=== PATIENT | female | born 1950 | race African-American/Black ===

== ENCOUNTER 2018-10-26 12:19 | Inpatient (IN) | payer MEDICARE, MEDICAID ==
[~2018-10-26] VITALS: Ht 160 cm; Wt 64.4 kg
[~2018-10-26 12:19] MED LIST: MIDODRINE HCL 5MG TABLET PO SCH
[2018-10-26] MEDS ORDERED: SODIUM CHLORIDE 0.9% 1,000 ML IV ONE (12:31)
[2018-10-26] MEDS ORDERED: NOREPINEPHRINE 4 MG in DEXT 5% WATER 250 ML IV STA ×3 (14:13→14:47)
[2018-10-26 14:42] LABS: BASOPHILS % 0.5 % (0.0-2.0); EOSINOPHILS % 0.4 % (0.0-5.0); HEMATOCRIT. 40.4 % (36.0-48.0); HEMOGLOBIN. 13.3 g/dL (12.0-16.0); MEAN CORPUSCULAR HEMOGLOBIN 31.4 pg (28.0-32.0); MEAN CORPUSCULAR VOLUME 95.2 fL (81.0-99.0); MEAN PLATELET VOLUME 8.7 fl (7.4-10.4); MONOCYTES % 6.2 % (2.0-8.0); NEUTROPHILS % 65.9 % (40.0-76.0); PLATELET 133 x1000/uL (130-400); RED BLOOD CELL COUNT 4.24 mill/uL (4.2-5.4); RED CELL DISTRIBUTION WIDTH 17.5 % (11.6-14.6)
[2018-10-26 14:47] LABS: CHLORIDE 112 mEq/L (98-107)
[2018-10-26 14:48] LABS: INR 1.3; PROTHROMBIN TIME 13.4 sec (9.6-11.0)
[2018-10-26] MEDS ORDERED: NOREPINEPHRINE 4MG/250ML PMX 250 ML IV ONE (15:00)
[2018-10-26] MEDS ORDERED: VANCOMYCIN 1 G PREMIX 200 ML IV ONE (15:15)
[2018-10-26] MEDS ORDERED: DILTIAZEM HCL 5MG/ML 5ML VIAL IV ONE (15:15)
[2018-10-26] MEDS ORDERED: PIPERACILLIN/TAZ 3.375G PREMIX 50 ML IV ONE (15:15)
[2018-10-26] MEDS ORDERED: DILTIAZEM HCL 60MG TABLET PO ONE (15:45)
[2018-10-26 16:20] LABS: CLARITY URINE CLEAR (CLEAR); COLOR URINE YELLOW (YELLOW); KETONES URINE NEGATIVE (NEGATIVE); LEUKOCYTE ESTERASE URINE NEGATIVE (NEGATIVE); NITRITE URINE NEGATIVE (NEGATIVE); OCCULT BLOOD URINE 1+ (NEGATIVE); PROTEIN URINE 2+ (NEGATIVE); SPECIFIC GRAVITY URINE 1.009 (1.005-1.030); UROBILINOGEN URINE 0.2 E.U./dL (0.2-1.0)
[2018-10-26] MEDS ORDERED: ONDANSETRON HCL 4MG/2ML INJ IV PRN (16:45)
[2018-10-26] MEDS ORDERED: ACETAMINOPHEN 325MG TABLET PO PRN (16:45)
[2018-10-26] MEDS ORDERED: DILTIAZEM HCL 5MG/ML 5ML VIAL IV PRN (17:00)
[2018-10-26 17:56] LABS: *BARBITURATES SCREEN URINE NEGATIVE (NEGATIVE); *BENZODIAZEPINES SCREEN URINE NEGATIVE (NEGATIVE)
[2018-10-26 17:57] LABS: *AMPHETAMINES SCREEN URINE NEGATIVE (NEGATIVE); *COCAINE SCREEN URINE NEGATIVE (NEGATIVE); CANNABINOID URINE SCREEN NEGATIVE (NEGATIVE); METHADONE URINE SCREEN NEGATIVE (NEGATIVE); OPIATES URINE SCREEN NEGATIVE (NEGATIVE); PHENCYCLIDINE URINE SCREEN NEGATIVE (NEGATIVE)
[2018-10-26] MEDS: SODIUM CHLORIDE 0.9% 1,000 ML IV SCH (22:46)
[2018-10-26] MEDS ORDERED: NOREPINEPHRINE 4 MG in DEXT 5% WATER 246 ML IV ONE (23:15)
[2018-10-26] MEDS ORDERED: NOREPINEPHRINE 4MG/250ML PMX 250 ML IV NR (23:26)
[2018-10-27] VITALS (31 sets, daily range): BP systolic 90–141; BP diastolic 47–97
[2018-10-27] MEDS ORDERED: ENOXAPARIN 80MG/0.8ML SYR SUBCUT NR (04:45)
[2018-10-27] MEDS ORDERED: ENOXAPARIN 80MG/0.8ML SYR SUBCUT SCH (09:00)
[2018-10-27] MEDS: SODIUM CHLORIDE 0.9% 1,000 ML IV SCH (09:33)
[2018-10-27 13:01] LABS: BASOPHILS % 0.7 % (0.0-2.0); EOSINOPHILS % 1.4 % (0.0-5.0); HEMATOCRIT. 39.7 % (36.0-48.0); LYMPHOCYTES % 33.9 % (20.0-50.0); MEAN CORPUSCULAR HEMOGLOBIN 31.1 pg (28.0-32.0); MEAN CORPUSCULAR VOLUME 95.2 fL (81.0-99.0); MONOCYTES % 6.8 % (2.0-8.0); NEUTROPHILS % 57.2 % (40.0-76.0); PLATELET 124 x1000/uL (130-400); RED BLOOD CELL COUNT 4.18 mill/uL (4.2-5.4); RED CELL DISTRIBUTION WIDTH 17.5 % (11.6-14.6)
[2018-10-27 13:08] LABS: CHLORIDE 114 mEq/L (98-107)
[2018-10-27] MEDS ORDERED: POTASSIUM CHLORIDE 20MEQ TABLET SR PO NR (14:56)
[2018-10-28] VITALS (7 sets, daily range): BP systolic 113–145; BP diastolic 56–87
[2018-10-28] MEDS: BUDESONIDE 0.5MG/2ML NEB HHN SCH ×3 (01:01→07:30)
[2018-10-28] MEDS: IPRATROPIUM BROMIDE (0.02%) 0.5MG/2.5ML NEB HHN PRN ×2 (01:01→07:30)
[2018-10-28] MEDS ORDERED: REGADENOSON 0.4 MG/5 ML IV SCH (08:00)
[2018-10-28] MEDS ORDERED: ENOXAPARIN 80MG/0.8ML SYR SUBCUT SCH (09:00)
[2018-10-28 09:55] LABS: BASOPHILS % 0.2 % (0.0-2.0); EOSINOPHILS % 2.1 % (0.0-5.0); LYMPHOCYTES % 51.4 % (20.0-50.0); MEAN CORPUSCULAR HEMOGLOBIN 31.3 pg (28.0-32.0); MEAN PLATELET VOLUME 8.6 fl (7.4-10.4); MONOCYTES % 6.8 % (2.0-8.0); NEUTROPHILS % 39.5 % (40.0-76.0); PLATELET 147 x1000/uL (130-400); RED BLOOD CELL COUNT 4.48 mill/uL (4.2-5.4); RED CELL DISTRIBUTION WIDTH 17.7 % (11.6-14.6)
[2018-10-28] MEDS ORDERED: CARVEDILOL 3.125 MG TABLET PO SCH (11:30)
[2018-10-28] MEDS ORDERED: ENOXAPARIN 60MG/0.6ML SYR SUBCUT SCH (21:00)
== END 2018-10-28 13:00 | disposition home or self-care (01) | DRG 280 ==
LOC: ER 12:19 → CVICU 16:04 → EDBEDREQSVC 16:14 → EDBEDREQ 16:14 → CANRESERV 22:25 → ENRESERV 22:25 → 3WST 10-27 20:33
PROVIDERS: ADMIT Internal Medicine; ATTEND Internal Medicine
PROC: 06HY33Z Insertion of Infusion Device into Lower Vein, Percutaneous Approach (ICD-10-PCS; principal; 2018-10-26)
PROC: B54BZZA Ultrasonography of Right Lower Extremity Veins, Guidance (ICD-10-PCS; 2018-10-26)
DX: I21.4 Non-ST elevation (NSTEMI) myocardial infarction (principal); J96.00 Acute respiratory failure, unspecified whether with hypoxia or hypercapnia; N17.0 Acute kidney failure with tubular necrosis; E44.0 Moderate protein-calorie malnutrition; R57.9 Shock, unspecified; E87.2 Acidosis; I42.0 Dilated cardiomyopathy; I95.9 Hypotension, unspecified; I48.91 Unspecified atrial fibrillation; E11.9 Type 2 diabetes mellitus without complications; J44.9 Chronic obstructive pulmonary disease, unspecified; I50.9 Heart failure, unspecified; I11.0 Hypertensive heart disease with heart failure; I27.20 Pulmonary hypertension, unspecified; E87.8 Other disorders of electrolyte and fluid balance, not elsewhere classified; R00.0 Tachycardia, unspecified; Z82.49 Family history of ischemic heart disease and other diseases of the circulatory system; Z86.711 Personal history of pulmonary embolism; Z86.79 Personal history of other diseases of the circulatory system; Z95.810 Presence of automatic (implantable) cardiac defibrillator; Z90.49 Acquired absence of other specified parts of digestive tract; Z79.899 Other long term (current) drug therapy; Z68.25 Body mass index [BMI] 25.0-25.9, adult
CPT/HCPCS: 36415; 36556; 71045; 78452; 78582; 80048; 80061; 80305; 81003; 82962; 83036; 83605; 83735; 84145; 84443; 84484; 93005; 93017; 93306; 94640; 96365; 96366; 96368; 97162; 99291; A9500; A9558; J1650; J2543; J3370; J3490; J7030; J7060; J7626

== ENCOUNTER 2019-07-30 12:40 | Emergency (ER) | payer MEDICARE, MEDICAID | END 2019-07-30 13:18 | disposition left against medical advice (07) | LOC: ER 12:52 | DX: R68.89 Other general symptoms and signs (principal); Z53.21 Procedure and treatment not carried out due to patient leaving prior to being seen by health care provider ==

== ENCOUNTER 2019-08-20 18:03 | Emergency (ER) | payer MEDICARE, MEDICAID ==
[~2019-08-20] VITALS: Ht 162.6 cm; Wt 61.0 kg
[2019-08-20 19:34] LABS: BASOPHILS % 0.6 % (0.0-2.0); CLARITY URINE CLEAR (CLEAR); COLOR URINE YELLOW (YELLOW); EOSINOPHILS % 1.8 % (0.0-5.0); HEMATOCRIT. 32.6 % (36.0-48.0); KETONES URINE NEGATIVE (NEGATIVE); LEUKOCYTE ESTERASE URINE NEGATIVE (NEGATIVE); LYMPHOCYTES % 44.4 % (20.0-50.0); MEAN CORPUSCULAR HEMOGLOBIN 33.5 pg (28.0-32.0); MEAN CORPUSCULAR VOLUME 99.3 fL (81.0-99.0); MEAN PLATELET VOLUME 9.1 fl (7.4-10.4); MONOCYTES % 10.4 % (2.0-8.0); NEUTROPHILS % 42.8 % (40.0-76.0); NITRITE URINE NEGATIVE (NEGATIVE); OCCULT BLOOD URINE NEGATIVE (NEGATIVE); PLATELET 214 x1000/uL (130-400); PROTEIN URINE NEGATIVE (NEGATIVE); RED BLOOD CELL COUNT 3.29 mill/uL (4.2-5.4); RED CELL DISTRIBUTION WIDTH 16.9 % (11.6-14.6); SPECIFIC GRAVITY URINE 1.015 (1.005-1.030); UROBILINOGEN URINE 0.2 E.U./dL (0.2-1.0)
[2019-08-20 19:37] LABS: CHLORIDE 111 mEq/L (98-107)
[2019-08-20 20:19] LABS: INR 1.1; PARTIAL THROMBOPLASTIN TIME 32.6 sec (23.4-31.0); PROTHROMBIN TIME 12.3 sec (9.6-11.0)
[2019-08-20 20:45] VITALS: BP 110/68
== END 2019-08-20 22:30 | disposition home or self-care (01) ==
LOC: ER 18:03
DX: R53.1 Weakness (principal); I48.91 Unspecified atrial fibrillation; I50.9 Heart failure, unspecified; J44.9 Chronic obstructive pulmonary disease, unspecified; Z86.73 Personal history of transient ischemic attack (TIA), and cerebral infarction without residual deficits; Z95.0 Presence of cardiac pacemaker
CPT/HCPCS: 36415; 71045; 80053; 81003; 83880; 84484; 85025; 93005; 99285

== ENCOUNTER 2019-10-23 10:15 | Inpatient (IN) | payer MEDICARE, MEDICAID ==
[~2019-10-23] VITALS: Ht 157.5 cm; Wt 71.8 kg
[2019-10-23] MEDS ORDERED: ASPIRIN 81MG TABLET PO ONE (11:15)
[2019-10-23] MEDS ORDERED: NITROGLYCERIN OINT 1GM/INCH UDPKT TD ONE (11:15)
[2019-10-23] MEDS ORDERED: FUROSEMIDE 40MG/4ML VIAL IV ONE (11:15)
[2019-10-23 11:21] LABS: BASOPHILS % 0.6 % (0.0-2.0); EOSINOPHILS % 1.1 % (0.0-5.0); HEMATOCRIT. 35.1 % (36.0-48.0); HEMOGLOBIN. 11.6 g/dL (12.0-16.0); LYMPHOCYTES % 38.5 % (20.0-50.0); MEAN PLATELET VOLUME 8.7 fl (7.4-10.4); MONOCYTES % 8.2 % (2.0-8.0); NEUTROPHILS % 51.6 % (40.0-76.0); PLATELET 238 x1000/uL (130-400); RED CELL DISTRIBUTION WIDTH 15.5 % (11.6-14.6)
[2019-10-23 11:27] LABS: CHLORIDE 113 mEq/L (98-107)
[2019-10-23 12:03] LABS: CLARITY URINE CLEAR (CLEAR); COLOR URINE YELLOW (YELLOW); KETONES URINE NEGATIVE (NEGATIVE); LEUKOCYTE ESTERASE URINE 1+ (NEGATIVE); NITRITE URINE NEGATIVE (NEGATIVE); OCCULT BLOOD URINE NEGATIVE (NEGATIVE); PROTEIN URINE NEGATIVE (NEGATIVE); SPECIFIC GRAVITY URINE 1.015 (1.005-1.030); UROBILINOGEN URINE 0.2 E.U./dL (0.2-1.0)
[2019-10-23 13:16] LABS: INR 1.1; PARTIAL THROMBOPLASTIN TIME 25.1 sec (23.4-31.0); PROTHROMBIN TIME 11.1 sec (9.6-11.0)
[2019-10-23] MEDS ORDERED: AZITHROMYCIN 500 MG in DEXT 5% WATER 250 ML IV ONE (13:30)
[2019-10-23] MEDS ORDERED: CEFTRIAXONE 1 G PREMIX 50 ML IV ONE (13:30)
[2019-10-23] MEDS ORDERED: DOCUSATE SODIUM 100MG CAPSULE PO PRN (16:30)
[2019-10-23] MEDS ORDERED: IPRATROPIUM/ALBUTEROL 0.5-3(2.5)MG/3ML NEB NEB PRN (16:30)
[2019-10-23] MEDS ORDERED: ONDANSETRON HCL 4MG/2ML INJ IV PRN (16:30)
[2019-10-23] MEDS ORDERED: GUAIFENESIN 200MG/10ML SUGAR FREE UDC PO PRN (16:30)
[2019-10-23] MEDS ORDERED: CLONIDINE 0.1MG TABLET PO PRN (16:30)
[2019-10-23] MEDS ORDERED: ENOXAPARIN 40MG/0.4ML SYR SUBCUT SCH (18:00)
[2019-10-23] MEDS ORDERED: ALBUTEROL 6.7GM HFA INHALER ORI PRN (18:15)
[2019-10-23] MEDS ORDERED: ALPRAZOLAM 0.25 MG TABLET PO PRN (18:15)
[2019-10-23] MEDS: HYDROCODONE/ACETAMINOPHEN 5/325MG TABLET PO PRN (19:59)
[2019-10-23] MEDS: CARVEDILOL 3.125 MG TABLET PO SCH (21:00)
[2019-10-23 22:40] VITALS: BP 122/72
[2019-10-23 22:54] VITALS: BP 122/72
[2019-10-23] MEDS ORDERED: IRBE1TAB43 MT (23:52)
[2019-10-23] MEDS ORDERED: DABI150C PO (23:52)
[2019-10-23] MEDS ORDERED: POTA10CA42 PO (23:52)
[2019-10-23] MEDS ORDERED: MAGN400C PO (23:52)
[2019-10-23] MEDS ORDERED: ATOR40TA70 PO (23:52)
[2019-10-23] MEDS ORDERED: SERT50TA12 PO (23:52)
[2019-10-23] MEDS ORDERED: ARIP10TA16 PO (23:52)
[2019-10-23] MEDS ORDERED: METO-385 PO (23:52)
[2019-10-23] MEDS ORDERED: TORS20TA4 PO (23:52)
[2019-10-23] MEDS ORDERED: OLAN10TA19 PO (23:52)
[2019-10-23] MEDS ORDERED: CALC-38 MT (23:52)
[2019-10-23] MEDS ORDERED: MIRT15TA6 PO (23:52)
[2019-10-23] MEDS ORDERED: EMTR1TAB12 MT (23:52)
[2019-10-23] MEDS ORDERED: SACU1TAB7 PO (23:52)
[2019-10-23] MEDS ORDERED: SPIR25TA PO (23:52)
[2019-10-24 00:11] LABS: CREATINE KINASE 151 IU/L (26-192)
[2019-10-24 04:00] VITALS: BP 105/71
[2019-10-24 04:55] LABS: CHLORIDE 109 mEq/L (98-107)
[2019-10-24 05:04] LABS: CREATINE KINASE 147 IU/L (26-192)
[2019-10-24 06:07] LABS: BASOPHILS % 0.2 % (0.0-2.0); EOSINOPHILS % 1.9 % (0.0-5.0); HEMATOCRIT. 39.3 % (36.0-48.0); HEMOGLOBIN. 12.9 g/dL (12.0-16.0); LYMPHOCYTES % 53.3 % (20.0-50.0); MEAN CORPUSCULAR HEMOGLOBIN 32.9 pg (28.0-32.0); MEAN CORPUSCULAR VOLUME 100.6 fL (81.0-99.0); MEAN PLATELET VOLUME 8.7 fl (7.4-10.4); NEUTROPHILS % 33.6 % (40.0-76.0); PLATELET 256 x1000/uL (130-400); RED BLOOD CELL COUNT 3.91 mill/uL (4.2-5.4)
[2019-10-24 08:00] VITALS: BP 122/24
[2019-10-24] MEDS: CARVEDILOL 3.125 MG TABLET PO SCH (08:28)
[2019-10-24] MEDS ORDERED: FUROSEMIDE 40MG/4ML VIAL IV SCH (09:00)
[2019-10-24] MEDS ORDERED: LOPERAMIDE HCL 2MG CAPSULE PO PRN (10:00)
[2019-10-24] MEDS ORDERED: SPIRONOLACTONE 25MG TABLET PO SCH (10:00)
[2019-10-24] MEDS: OLANZAPINE 10MG TABLET PO SCH (11:19)
[2019-10-24] MEDS: CALCIUM CARBONATE/VITAMIN D3 500MG TABLET PO SCH ×2 (11:19→16:44)
[2019-10-24] MEDS: MIRTAZAPINE 15MG TABLET PO SCH (11:19)
[2019-10-24] MEDS: BUMETANIDE 1MG/4ML VIAL IV SCH ×2 (11:20→16:45)
[2019-10-24] MEDS: SERTRALINE HCL 50MG TABLET PO SCH (11:21)
[2019-10-24] MEDS: SACUBITRIL/VALSARTAN 49MG/51MG TABLET PO SCH ×2 (11:33→16:45)
[2019-10-24 12:00] VITALS: BP 108/77
[2019-10-24 16:00] VITALS: BP 91/61
[2019-10-24 20:00] VITALS: BP 86/54
[2019-10-24] MEDS: ARIPIPRAZOLE 5MG TABLET PO SCH (20:42)
[2019-10-24] MEDS: ATORVASTATIN CALCIUM 40MG TABLET PO SCH (20:43)
[2019-10-24] MEDS: METOPROLOL TARTRATE 25MG TABLET PO SCH (20:47)
[2019-10-24] MEDS ORDERED: ATORVASTATIN CALCIUM 40MG TABLET PO SCH (21:00)
[2019-10-25] VITALS (9 sets, daily range): BP systolic 80–109; BP diastolic 55–79
[2019-10-25] MEDS ORDERED: MIDAZOLAM HCL 2 MG/2 ML VIAL ONE (07:25)
[2019-10-25] MEDS ORDERED: LIDOCAINE HCL 1% 20ML VIAL (Pyxis) INJ ONE (07:25)
[2019-10-25] MEDS ORDERED: IODIXANOL 320MG/ML 100 ML BOTTLE IV ONE (07:25)
[2019-10-25] MEDS ORDERED: FENTANYL CITRATE/PF 50MCG/ML 2ML VIAL ONE (07:25)
[2019-10-25] MEDS ORDERED: VERAPAMIL HCL 2.5 MG/1 ML 2ML VIAL IV ONE (08:25)
[2019-10-25] MEDS: CALCIUM CARBONATE/VITAMIN D3 500MG TABLET PO SCH ×2 (09:00→17:40)
[2019-10-25] MEDS: OLANZAPINE 10MG TABLET PO SCH (09:00)
[2019-10-25] MEDS: SERTRALINE HCL 50MG TABLET PO SCH (09:00)
[2019-10-25] MEDS: MIRTAZAPINE 15MG TABLET PO SCH (09:00)
[2019-10-25] MEDS: SACUBITRIL/VALSARTAN 49MG/51MG TABLET PO SCH ×2 (09:00→17:41)
[2019-10-25] MEDS: METOPROLOL TARTRATE 25MG TABLET PO SCH ×2 (09:00→20:36)
[2019-10-25 09:06] LABS: ABSOLUTE BASOPHILS 0.1 x10E3/uL (0.0-0.2); ABSOLUTE EOSINOPHILS 0.1 x10E3/uL (0.0-0.4); ABSOLUTE LYMPHOCYTES 4.4 x10E3/uL (0.7-3.1); ABSOLUTE NEUTROPHILS 3.7 x10E3/uL (1.4-7.0); BASOPHILS 1 % (Not Estab.); HEMATOCRIT 41.9 % (34.0-46.6); HEMOGLOBIN 12.9 g/dL (11.1-15.9); IMMATURE GRANULOCYTES 0 % (Not Estab.); LYMPHOCYTES 47 % (Not Estab.); MEAN CORPUSCULAR HEMOGLOBIN 31.3 pg (26.6-33.0); MEAN CORPUSCULAR HGB CONC. 30.8 g/dL (31.5-35.7); MEAN CORPUSCULAR VOLUME 102 fL (79-97); MONOCYTES 10 % (Not Estab.); NEUTROPHILS 40 % (Not Estab.); PLATELETS 266 x10E3/uL (150-450); RBC 4.12 x10E6/uL (3.77-5.28); RED CELL DISTRIBUTION WIDTH 13.5 % (11.7-15.4); WBC 9.3 x10E3/uL (3.4-10.8)
[2019-10-25] MEDS ORDERED: ATROPINE SULFATE 1MG/10ML SYR IV PRN (09:45)
[2019-10-25] MEDS ORDERED: ASPIRIN 325MG EC TABLET PO SCH (10:15)
[2019-10-25] MEDS ORDERED: CLOPIDOGREL 75MG TABLET PO SCH (10:15)
[2019-10-25] MEDS ORDERED: HEPARIN SODIUM 1,000 UNIT/1ML VIAL IV ONE (11:51)
[2019-10-25] MEDS ORDERED: ALBUTEROL (0.083%) 2.5MG/3ML NEB HHN PRN (12:30)
[2019-10-25] MEDS: HYDROCODONE/ACETAMINOPHEN 5/325MG TABLET PO PRN ×2 (13:06→17:41)
[2019-10-25 13:11] LABS: % CD 3 POS. LYMPHOCYTES 89.9 % (57.5-86.2); % CD 4 POS. LYMPHOCYTES 26.1 % (30.8-58.5); % CD 8 POS. LYMPH 64.6 % (12.0-35.5); ABSOLUTE CD 3 3956 /uL (622-2402); ABSOLUTE CD 4 HELPER 1148 /uL (359-1519); ABSOLUTE CD 8 SUPPRESSOR 2842 /uL (109-897)
[2019-10-25] MEDS: ATORVASTATIN CALCIUM 40MG TABLET PO SCH (20:30)
[2019-10-25] MEDS: ARIPIPRAZOLE 5MG TABLET PO SCH (20:30)
[2019-10-26] VITALS (14 sets, daily range): BP systolic 90–122; BP diastolic 39–78
[2019-10-26] MEDS: HYDROCODONE/ACETAMINOPHEN 5/325MG TABLET PO PRN (06:09)
[2019-10-26 07:15] LABS: BASOPHILS % 0.5 % (0.0-2.0); EOSINOPHILS % 1.2 % (0.0-5.0); HEMATOCRIT. 45.5 % (36.0-48.0); HEMOGLOBIN. 14.6 g/dL (12.0-16.0); MEAN CORPUSCULAR HEMOGLOBIN 32.5 pg (28.0-32.0); MEAN CORPUSCULAR VOLUME 101.4 fL (81.0-99.0); MEAN PLATELET VOLUME 8.5 fl (7.4-10.4); MONOCYTES % 9.2 % (2.0-8.0); NEUTROPHILS % 40.1 % (40.0-76.0); PLATELET 233 x1000/uL (130-400); RED BLOOD CELL COUNT 4.49 mill/uL (4.2-5.4); RED CELL DISTRIBUTION WIDTH 15.2 % (11.6-14.6)
[2019-10-26] MEDS ORDERED: FENTANYL CITRATE/PF 50MCG/ML 2ML VIAL ONE (07:19)
[2019-10-26] MEDS ORDERED: MIDAZOLAM HCL 2 MG/2 ML VIAL ONE (07:19)
[2019-10-26] MEDS ORDERED: LIDOCAINE HCL 1% 20ML VIAL (Pyxis) INJ ONE (07:19)
[2019-10-26] MEDS ORDERED: IODIXANOL 320MG/ML 100 ML BOTTLE IV ONE (07:19)
[2019-10-26] MEDS ORDERED: IOHEXOL-300 100 ML BOTTLE ONE (07:20)
[2019-10-26] MEDS: ASPIRIN 81MG TABLET PO SCH (08:12)
[2019-10-26] MEDS: CLOPIDOGREL 75MG TABLET PO SCH (08:12)
[2019-10-26] MEDS: METOPROLOL TARTRATE 25MG TABLET PO SCH ×2 (09:00→21:00)
[2019-10-26] MEDS: CALCIUM CARBONATE/VITAMIN D3 500MG TABLET PO SCH ×2 (09:00→17:13)
[2019-10-26] MEDS ORDERED: CLOPIDOGREL 75MG TABLET PO ONE (11:15)
[2019-10-26] MEDS ORDERED: ASPIRIN 81MG TABLET PO NR (11:15)
[2019-10-26] MEDS: SACUBITRIL/VALSARTAN 49MG/51MG TABLET PO SCH ×2 (11:34→20:00)
[2019-10-26] MEDS ORDERED: HEPARIN SODIUM 1,000 UNIT/1ML VIAL IV ONE (11:46)
[2019-10-26] MEDS ORDERED: ATROPINE SULFATE 1MG/10ML SYR IV PRN (16:45)
[2019-10-26] MEDS ORDERED: ACETAMINOPHEN 325MG TABLET PO PRN (16:45)
[2019-10-26] MEDS: OLANZAPINE 10MG TABLET PO SCH (17:13)
[2019-10-26] MEDS: SERTRALINE HCL 50MG TABLET PO SCH (17:13)
[2019-10-26] MEDS: MIRTAZAPINE 15MG TABLET PO SCH (17:13)
[2019-10-26] MEDS ORDERED: RILP25TA PO (17:44)
[2019-10-26] MEDS ORDERED: SODIUM CHLORIDE 0.9% 500 ML IV ONE (18:30)
[2019-10-26] MEDS: ARIPIPRAZOLE 5MG TABLET PO SCH (22:34)
[2019-10-26] MEDS: ATORVASTATIN CALCIUM 40MG TABLET PO SCH (22:34)
[2019-10-26] MEDS: ACETAMINOPHEN 325MG TABLET PO PRN (22:36)
[2019-10-27] VITALS (12 sets, daily range): BP systolic 59–120; BP diastolic 37–73
[2019-10-27] MEDS ORDERED: ATROPINE SULFATE 1MG/10ML SYR ONE (01:39)
[2019-10-27] MEDS: ACETAMINOPHEN 325MG TABLET PO PRN (03:59)
[2019-10-27 06:19] LABS: BASOPHILS % 0.2 % (0.0-2.0); EOSINOPHILS % 1.1 % (0.0-5.0); HEMATOCRIT. 38.7 % (36.0-48.0); HEMOGLOBIN. 12.5 g/dL (12.0-16.0); LYMPHOCYTES % 44.9 % (20.0-50.0); MEAN CORPUSCULAR HEMOGLOBIN 32.7 pg (28.0-32.0); MEAN PLATELET VOLUME 8.8 fl (7.4-10.4); MONOCYTES % 7.1 % (2.0-8.0); NEUTROPHILS % 46.7 % (40.0-76.0); PLATELET 218 x1000/uL (130-400); RED BLOOD CELL COUNT 3.83 mill/uL (4.2-5.4); RED CELL DISTRIBUTION WIDTH 14.9 % (11.6-14.6)
[2019-10-27 07:10] LABS: HIV 1 ABS Positive (Negative); HIV 2 ABS Negative (Negative); HIV SCREEN 4G Reactive (Non Reactive); INTERPRETATION HIV-1 Positive (.)
[2019-10-27] MEDS ORDERED: SODIUM CHLORIDE 0.45% 250 ML IV ONE ×3 (07:30→18:30)
[2019-10-27] MEDS: CLOPIDOGREL 75MG TABLET PO SCH (09:00)
[2019-10-27] MEDS: METOPROLOL TARTRATE 25MG TABLET PO SCH ×2 (09:00→21:00)
[2019-10-27] MEDS: SACUBITRIL/VALSARTAN 49MG/51MG TABLET PO SCH ×2 (09:00→17:00)
[2019-10-27] MEDS: ASPIRIN 81MG TABLET PO SCH (09:00)
[2019-10-27] MEDS: SERTRALINE HCL 50MG TABLET PO SCH (09:29)
[2019-10-27] MEDS: OLANZAPINE 10MG TABLET PO SCH (09:29)
[2019-10-27] MEDS: MIRTAZAPINE 15MG TABLET PO SCH (09:29)
[2019-10-27] MEDS: CALCIUM CARBONATE/VITAMIN D3 500MG TABLET PO SCH ×2 (09:29→18:27)
[2019-10-27 11:36] LABS: BASOPHILS % 0.4 % (0.0-2.0); EOSINOPHILS % 1.2 % (0.0-5.0); HEMATOCRIT. 36.8 % (36.0-48.0); LYMPHOCYTES % 35.3 % (20.0-50.0); MEAN CORPUSCULAR HEMOGLOBIN 32.5 pg (28.0-32.0); MEAN CORPUSCULAR VOLUME 100.1 fL (81.0-99.0); MEAN PLATELET VOLUME 8.7 fl (7.4-10.4); NEUTROPHILS % 51.1 % (40.0-76.0); PLATELET 190 x1000/uL (130-400); RED BLOOD CELL COUNT 3.67 mill/uL (4.2-5.4); RED CELL DISTRIBUTION WIDTH 14.8 % (11.6-14.6)
[2019-10-27 11:54] LABS: CHLORIDE 110 mEq/L (98-107)
[2019-10-27] MEDS: ATORVASTATIN CALCIUM 40MG TABLET PO SCH (20:58)
[2019-10-27] MEDS: ARIPIPRAZOLE 5MG TABLET PO SCH (20:58)
[2019-10-28] VITALS (7 sets, daily range): BP systolic 77–108; BP diastolic 38–73
[2019-10-28] MEDS: OLANZAPINE 10MG TABLET PO SCH (08:40)
[2019-10-28] MEDS: CALCIUM CARBONATE/VITAMIN D3 500MG TABLET PO SCH (08:40)
[2019-10-28] MEDS: SERTRALINE HCL 50MG TABLET PO SCH (08:40)
[2019-10-28] MEDS: MIRTAZAPINE 15MG TABLET PO SCH (08:40)
[2019-10-28] MEDS: METOPROLOL TARTRATE 25MG TABLET PO SCH (09:00)
[2019-10-28] MEDS: ASPIRIN 81MG TABLET PO SCH (09:37)
[2019-10-28] MEDS: CLOPIDOGREL 75MG TABLET PO SCH (09:37)
[2019-11-23] MEDS ORDERED: BUME2TAB34 MT ×2 (11:39→11:41)
== END 2019-10-28 11:54 | disposition home or self-care (01) | DRG 853 ==
LOC: ER 10:15 → 7WST 14:03 → EDBEDREQ 14:06 → EDBEDREQTM 14:06 → ENRESERV 20:46 → 5WST 10-24 15:00 → 3WST 10-25 09:35
PROVIDERS: ADMIT Hospitalist; ATTEND Hospitalist
PROC: 4A023N6 Measurement of Cardiac Sampling and Pressure, Right Heart, Percutaneous Approach (ICD-10-PCS; principal; 2019-10-25)
PROC: B5161ZZ Fluoroscopy of Right Subclavian Vein using Low Osmolar Contrast (ICD-10-PCS; 2019-10-25)
PROC: B2111ZZ Fluoroscopy of Multiple Coronary Arteries using Low Osmolar Contrast (ICD-10-PCS; 2019-10-25)
PROC: 027034Z Dilation of Coronary Artery, One Artery with Drug-eluting Intraluminal Device, Percutaneous Approach (ICD-10-PCS; 2019-10-26)
PROC: 4A023N8 Measurement of Cardiac Sampling and Pressure, Bilateral, Percutaneous Approach (ICD-10-PCS; 2019-10-26)
PROC: B41F1ZZ Fluoroscopy of Right Lower Extremity Arteries using Low Osmolar Contrast (ICD-10-PCS; 2019-10-26)
DX: A41.89 Other specified sepsis (principal); J96.00 Acute respiratory failure, unspecified whether with hypoxia or hypercapnia; I50.43 Acute on chronic combined systolic (congestive) and diastolic (congestive) heart failure; I13.0 Hypertensive heart and chronic kidney disease with heart failure and stage 1 through stage 4 chronic kidney disease, or unspecified chronic kidney disease; I82.B11 Acute embolism and thrombosis of right subclavian vein; I25.110 Atherosclerotic heart disease of native coronary artery with unstable angina pectoris; I42.9 Cardiomyopathy, unspecified; J44.0 Chronic obstructive pulmonary disease with (acute) lower respiratory infection; N17.9 Acute kidney failure, unspecified; F41.0 Panic disorder [episodic paroxysmal anxiety]; I08.1 Rheumatic disorders of both mitral and tricuspid valves; I27.20 Pulmonary hypertension, unspecified; J44.9 Chronic obstructive pulmonary disease, unspecified; I48.91 Unspecified atrial fibrillation; I27.21 Secondary pulmonary arterial hypertension; I48.0 Paroxysmal atrial fibrillation; E78.5 Hyperlipidemia, unspecified; N18.9 Chronic kidney disease, unspecified; E86.0 Dehydration; I95.9 Hypotension, unspecified; B34.9 Viral infection, unspecified; Z20.828 Contact with and (suspected) exposure to other viral communicable diseases; Z86.711 Personal history of pulmonary embolism; Z86.73 Personal history of transient ischemic attack (TIA), and cerebral infarction without residual deficits; Z86.79 Personal history of other diseases of the circulatory system; Z95.810 Presence of automatic (implantable) cardiac defibrillator; Z79.01 Long term (current) use of anticoagulants; Z79.02 Long term (current) use of antithrombotics/antiplatelets; Z79.899 Other long term (current) drug therapy; Z90.49 Acquired absence of other specified parts of digestive tract
CPT/HCPCS: 36415; 71045; 80048; 80053; 81003; 82550; 83605; 83880; 84484; 85025; 85347; 85379; 86359; 86360; 86701; 86702; 87389; 87635; 93005; 93306; 93454; 93460; 93970; 96365; 99285; C1725; C1760; C1769; C1874; C1887; C1893; J0456; J0461; J0696; J1644; J1650; J1940; J2250; J2405; J3010; J3490; J7060; Q9967

== ENCOUNTER 2021-03-19 06:01 | Emergency (ER) | payer MEDICARE, MEDICAID ==
[~2021-03-19] VITALS: Ht 160 cm; Wt 63.0 kg
[~2021-03-19 06:01] MED LIST changes: +ARIP10TA56 PO; +ATOR40TA70 PO; +BUME2TAB34 MT; +CALC-38 MT; +DABI150C PO; +EMTR1TAB12 MT; +IRBE1TAB43 MT; +MAGN400C PO; +METO-385 PO; -MIDODRINE HCL 5MG TABLET PO SCH; +MIRT-89 PO; +OLAN10TA72 PO; +POTA10CA42 PO; +RILP25TA PO; +SACU1TAB7 PO; +SERT-422 PO; +SPIR25TA PO
[2021-03-19 06:30] VITALS: BP 93/44
[2021-03-19 06:41] LABS: BG BASE EXCESS -8.2 mmol/L (-2.0-2.0); BG CARBOXYHEMOGLOBIN 0.4 % (0.5-1.5); BG DEOXYHEMOGLOBIN 0.8 % (0.0-5.0); BG FRACTION INSPIRED OXYGEN 100; BG HCO3 ACT 14.9 mmol/L (22.0-26.0); BG METHEMOGLOBIN 0.1 % (0.0-1.5); BG OXYGEN SATURATION 99.2 % (92.0-98.5); BG OXYHEMOGLOBIN 98.7 % (94.0-97.0); BG PCO2 25.9 mmHg (35.0-45.0); BG PH 7.379 (7.350-7.450); BG PO2 192.2 mmHg (75.0-100.0); BG SAMPLE SITE LEFT RADIAL; BG TOTAL HEMOGLOBIN 15.2 g/dL (12.0-18.0); BG TOTAL RESPIRATORY RATE 22 b/min; BG VENT MODE MASK - NRB
[2021-03-19 07:17] LABS: BASOPHILS % 0.6 % (0.0-2.0); EOSINOPHILS % 0.9 % (0.0-5.0); HEMATOCRIT. 47.9 % (36.0-48.0); HEMOGLOBIN. 15.2 g/dL (12.0-16.0); LYMPHOCYTES % 44.6 % (20.0-50.0); MEAN CORPUSCULAR HEMOGLOBIN 29.7 pg (28.0-32.0); MEAN CORPUSCULAR VOLUME 93.7 fL (81.0-99.0); MEAN PLATELET VOLUME 8.5 fl (7.4-10.4); MONOCYTES % 7.8 % (2.0-8.0); NEUTROPHILS % 46.1 % (40.0-76.0); PLATELET 146 x1000/uL (130-400); RED BLOOD CELL COUNT 5.11 mill/uL (4.2-5.4); RED CELL DISTRIBUTION WIDTH 17.2 % (11.6-14.6)
[2021-03-19 08:47] LABS: CHLORIDE 108 mEq/L (98-107)
[2021-03-19] MEDS ORDERED: PIPERACILLIN/TAZ 3.375G PREMIX 50 ML IV ONE (09:15)
[2021-03-19] MEDS ORDERED: VANCOMYCIN 1 G PREMIX 200 ML IV ONE (09:15)
[2021-03-19] MEDS ORDERED: KETOROLAC 30MG/ML VIAL IV ONE (09:30)
[2021-03-19] MEDS ORDERED: NOREPINEPHRINE 8MG/250ML PMX 250 ML IV STA (10:42)
[2021-03-19] MEDS ORDERED: DOPAMINE 400MG/250ML PREMIX 250 ML IV ONE (10:44)
[2021-03-19] MEDS ORDERED: NOREPINEPHRINE 8MG/250ML PMX 250 ML IV SCH (10:45)
[2021-03-19] MEDS ORDERED: EPINEPHRINE 10 MG in SODIUM CHLORIDE 0.9% 240 ML IV PRN (10:45)
== END 2021-03-19 11:01 ==
LOC: ER 06:01 → EDBEDREQSVC 10:25 → ER 11:01 → CANBEDREQ 14:28
DX: I46.9 Cardiac arrest, cause unspecified (principal); I50.9 Heart failure, unspecified; Z20.822 Contact with and (suspected) exposure to COVID-19; Z79.899 Other long term (current) drug therapy
CPT/HCPCS: 31500; 36415; 36556; 36600; 71045; 80053; 82375; 82805; 82962; 83605; 83880; 84484; 85025; 87426; 93005; 99291; J1265; J2543; J3490; J7050